=== PATIENT | female | born 1990 | race Caucasian/White ===

== ENCOUNTER 2016-10-16 02:50 | Emergency (ER) | payer OTHER ==
[~2016-10-16] VITALS: Ht 162.6 cm; Wt 72.7 kg
[2016-10-16 02:48] VITALS: BP 99/66; PULSE 118; RESP 24; O2SAT 100
[2016-10-16] MEDS ORDERED: Ondansetron 2 mg/mL 2 mL Inj IVPUSH ONE (02:55)
[2016-10-16] MEDS ORDERED: HYDROmorphone 1 mg/mL Inj IVPUSH ONE ×2 (02:55)
--- NOTE | 2016-10-16 02:56 | ED.REPORT ---
HPI-Extremity Problem Lower Date of Service Oct 16, 2016 ED Provider: Dr. Stone Donovan M.D. A 26 year old female with a history of recent left femur fracture s/p anil and pin placement presents to the ED via EMS with left knee pain after a ground level fall just prior to arrival while using a walker. The pain radiates up and down the patient's leg. She denies other symptoms. EMS found the patient with a pulse of 110 and otherwise normal vital signs. She was given 7mg morphine en route. The patient presents anxious and in pain. Nursing Notes Stated Complaint: GROUND LEVEL FALL Chief Complaint: Multiple Trauma/Fall Nursing Notes Reviewed: Yes Allergies: Coded Allergies: No Known Allergies (Verified , 03/13/12) Scheduled PRN oxyCODONE (oxyCODONE) 10 Mg Tablet 20 MG PO Q4H PRN PRN For Pain General Time Seen by MD: 02:56 Chief Complaint Knee injury left Hx Obtained From: Patient Arrived By: Ambulance Onset Occurred: Just prior to arrival Symptom Duration: Since onset Caused by: Accidental, Fall on ground Location: : Knee left: Leg left Quality: Painful Severity: Current: Moderate Severity: Maximum: Moderate Pertinent Negative: Pt denies other symptoms Pertinent Negative: Relieved by nothing Immunizations: Unknown Recent Healthcare: Recent doctor visit, Previous surgery Past Medical History Past Medical History Left femur fracture Past Surgical History Anil and pin placement s/p left femur fracture Smoking History Unknown if Ever Smoker Social History Other Social History: Good social support Ambulatory Status Independent Review of Systems Constitutional: Denies: Fever Musculoskeletal: Reports: Extremity pain (Left leg), Joint pain (Left knee) Complete sys rev & neg: except as marked. Respiratory: Denies: Non-productive cough GI: Denies: Diarrhea, Vomiting Psychiatric: Reports: Anxiety Physical Exam Physical Exam Notes: Initial Vital Signs Vital Signs (First) Date Time Temp Pulse Resp B/P Pulse Ox O2 Delivery O2 Flow Rate FiO2 10/16/16 02:48 118 24 99/66 100 Room Air Initial VS: Reviewed Head / Eyes: Atraumatic, Normocephalic ENT: Conjunctiva normal, No scleral icterus Neck: Supple, Full range of motion Respiratory: No respiratory distress Skin: Warm, Dry, No cyanosis Neurologic: Alert, Oriented, Nonfocal Psychiatric: Mood/affect normal, Behavior normal, Normal thought content Lower Extremity / Pelvis / MS: Neurologic intact, Vascular intact Lower Ext Brief Normals: Hip L exam normal Left Thigh: Positive: Swelling present... (Post-op), Tenderness present... ( Post-op) Surgical site to left leg tender without drainage General/Constitutional: Awake, Alert Interpretation & Diagnostics X-Ray Interpretation Xray Interpretation: No new fracture Hardware intact Study Performed: 2 View X-Ray Ordered: Femur left Interpretation / Wet Read by: Wet read ED physician Re-Eval/Medical Decision Med Decision/Clinical Course 26-year-old just post op from a medullary anil repair of a femoral fracture, suffered a low level fall from walker to ground in [place] flexion fashion. She has tenderness of her knee and some extent of her hip, but basically a benign exam. X-ray shows no displacement of the hardware and no fracture. She is improved after meds here. She has had a fairly prolonged need for opiates postop and is tapered only slowly, but will clearly need to bump back up again to an effective dose. She did well with 20 mg of oxycodone here and is discharged home with instructions to resume 20 mg every 4 hours and then taper JOE.. Follow-up with orthopedics. Re-Evaluation/Progress : Time of Eval: 04:45 Patient Status: Condition improved Re-Evaluation/Progress Note: Discussed with patient x-ray results, diagnosis, and plan for discharge. Follow-up and return to the ER instructions given. Patient agrees with plan for care and all questions were addressed. Counseled Regarding: Diagnosis, Need for follow-up, When/why to return to ED Discharge & Departure Shift Change Sign-Out Response to Therapy: Improved Impression: Primary Impression: Contusion Encounter type: initial encounter Contusion area: knee Laterality: left Qualified Code: S80.02XA - Contusion of left knee, initial encounter Disposition: Home Discharge Condition All VS Reviewed: Yes Condition: Improved Patient Instructions: Oxycodone, Rapid Release (By mouth) Additional Instructions: Resume at 20 mg every four hours as before, and then taper down as he previously had, as soon as you can. Ice to the tender areas today. Follow-up with your doctor in the office. Call your orthopedist on Monday for follow-up. Referrals: Sophia Hutton MD (PCP) Scribe Attestation Portions of this note were transcribed by Stacy Phillip. IDr. Donovan, personally performed the history, physical exam, and medical decision-making; I reviewed and confirmed the accuracy of the information in the transcribed note. Signed by: Jojo Pryor, 10/16/2016, 05:50 copies to: Sophia Hutton MD, Christopher W MD Oct 16, 2016 02:56 STACY PHILLIP Oct 16, 2016 03:52
[2016-10-16] MEDS ORDERED: OXYC10TA8 PO (04:53)
--- NOTE | 2016-10-16 10:52 | DRSVH ---
PROCEDURE: X-RAY LEFT FEMUR, TWO VIEWS ([id number]) INDICATIONS: 26-year-old female with ground level fall. She has recent surgery for open reduction and internal fixation of left femoral shaft fracture. TECHNIQUE: 2 views of the femur were acquired. COMPARISON: None. FINDINGS: Bones: There is an intramedullary juan alberto and multiple fixation screws. A transverse fracture is present in the right proximal femoral shaft. Alignment is near anatomical. No suspicious bony lesions. Soft tissues: No suspicious soft tissue calcifications or masses. IMPRESSION: Open reduction internal fixation of femoral shaft fracture with an intramedullary juan alberto and multiple fixation screws. Alignment is near anatomical. Comparison to outside examinations, if avail able, would be helpful to assess interval change. Dictated by: Christa Limon M.D. on 10/16/2016 at 10:46 Approved by: Christa Limon M.D. on 10/16/2016 at 10:50
== END 2016-10-16 05:04 | disposition home or self-care (01) ==
LOC: SED 02:50
DX: S80.02XA Contusion of left knee, initial encounter (principal); W18.39XA Other fall on same level, initial encounter; Y93.89 Activity, other specified; Y92.89 Other specified places as the place of occurrence of the external cause; Y99.8 Other external cause status
CPT/HCPCS: 73551; 96374; 96375; 99284; J1170; J2060; J2405